=== PATIENT | male | born 1985 | race Hispanic/Latino ===

== ENCOUNTER 2018-01-06 06:45 | Observation (INO) | payer OTHER ==
[2018-01-05 10:40] LABS: BASOPHILS % 0.3 % (0.0-1.0); EOSINOPHILS # (AUTO) 0.1 (0.0-0.4); EOSINOPHILS % 1.3 % (0.0-6.0); HEMATOCRIT 43.3 % (38.2-49.6); HEMOGLOBIN 14.8 g/dL (14.0-18.0); LYMPHOCYTES # (AUTO) 2.7 (1.0-3.2); LYMPHOCYTES % 44.8 % (18.0-39.1); MEAN CORPUSCULAR HEMOGLOBIN 29.4 pg (28-32); MEAN CORPUSCULAR HGB CONC 34.2 g/dL (31-35); MEAN CORPUSCULAR VOLUME 85.9 fL (81-99); MONOCYTES # (AUTO) 0.6 (0.2-0.8); MONOCYTES % 10.3 % (4.4-11.3); NEUTROPHILS # (AUTO) 2.6 (2.1-6.9); NEUTROPHILS % 42.6 % (38.7-80.0); PLATELET COUNT 218 x10e3/uL (140-360); RED BLOOD COUNT 5.04 x10e6/uL (4.3-5.7); RED CELL DISTRIBUTION WIDTH 12.1 % (11.7-14.4)
--- NOTE | 2018-01-05 11:16 | Diagnostic Imaging Report ---
EXAMINATION: PA and lateral views of the chest. COMPARISON: None CLINICAL HISTORY: Preop for back surgery DISCUSSION: Lungs are well-inflated. No focal consolidation, pleural effusion, or pneumothorax. Cardiomediastinal contour and pulmonary vasculature are within normal limits. No acute osseous abnormality. IMPRESSION: No acute cardiopulmonary abnormalities. Signed by: Dr. Dwain Domingo M.D. on 01/05/2018 11:13 AM
[2018-01-05 11:23] LABS: INR 1.02; PROTHROMBIN TIME 14.3 seconds (11.9-14.5)
[2018-01-05 11:24] LABS: PARTIAL THROMBOPLASTIN TIME 32.6 seconds (23.8-35.5)
[2018-01-05 11:29] LABS: ANION GAP 14.9 mmol/L (8-16); BLOOD UREA NITROGEN 15 mg/dL (7-26); BUN/CREATININE RATIO 17 (6-25); CALCIUM 9.9 mg/dL (8.4-10.2); CARBON DIOXIDE 26 mmol/L (22-29); CHLORIDE 103 mmol/L (98-107); CREATININE, SERUM 0.89 mg/dL (0.72-1.25); EST GLOMERULAR FILTRATION RATE > 60 ML/MIN (60-); GLUCOSE 88 mg/dL (74-118); POTASSIUM 3.9 mmol/L (3.5-5.1); SODIUM 140 mmol/L (136-145)
[~2018-01-06] VITALS: Ht 172.7 cm; Wt 99.6 kg
[~2018-01-06 06:45] MED LIST: BACITRACIN 50,000 UNIT VIAL ONE; BUPIVACAINE 0.5%/EPI 30 ML SDV INJ ONE; GELATIN SPONGE 12-7MM ONE; THROMBIN-JMI W/DIL SPRAY PUMP ACTUATOR 20000 UNIT KIT ONE
[2018-01-06] MEDS ORDERED: ACETAMINOPHEN 1000 MG/100 ML 100 ML IV ONE (07:10)
[2018-01-06] MEDS ORDERED: LIDOCAINE HCL (LTA) 4 ML SOLN ONE (07:10)
[2018-01-06] MEDS ORDERED: VANCOMYCIN 1GM/NS 250 ML 250 ML ONE (07:16)
[2018-01-06] MEDS: LACTATED RINGER'S 1,000 ML IV SCH ×2 (09:40→17:11)
[2018-01-06] MEDS ORDERED: ACETAMINOPHEN 325 MG TAB PO PRN (09:45)
[2018-01-06] MEDS ORDERED: HYDROMORPHONE 2MG/ML 2 MG/ML ML IV PRN (09:45)
[2018-01-06] MEDS ORDERED: ONDANSETRON HCL INJ 2 MG/ML VIAL IV PRN (09:45)
[2018-01-06] MEDS ORDERED: PROMETHAZINE HCL (IM) 25 MG/ML VIAL IM PRN (09:45)
[2018-01-06] MEDS ORDERED: MAGNESIUM/ALUMINUM/SIMETHICONE 30 ML UDC PO PRN (09:45)
[2018-01-06] MEDS ORDERED: CEPACOL SORE THROAT LOZENGES PO PRN (09:45)
[2018-01-06] MEDS ORDERED: MORPHINE SULFATE 5 MG/ML VIAL IM PRN (09:45)
[2018-01-06] MEDS ORDERED: HYDROMORPHONE 2MG/ML 2 MG/ML ML ONE (10:09)
--- NOTE | 2018-01-06 10:40 | Operative Report ---
DATE OF PROCEDURE: January 06, 2018 PREOPERATIVE DIAGNOSIS: Left L5-S1 disk herniation with radiculopathy, M51.17. POSTOPERATIVE DIAGNOSIS: Left L5-S1 disk herniation with radiculopathy, M51.17. PROCEDURE: Left L5-S1 laminotomy, medial facetectomy and microsurgical diskectomy, [id number]. ANESTHESIA: General. INDICATIONS: Patient is a 32-year-old man who presents with a severe left S1 radiculopathy due to a left L5-S1 disk herniation with superior migration of the extruded disk fragment. The patient was taken to the operating room for microsurgical diskectomy. PROCEDURE: After the induction of general anesthesia, the patient was placed on the operating table in prone position over a Robb frame. Lumbar region was prepped and draped in sterile fashion. A preoperative x-ray was obtained. A small midline incision was created. Lumbar fascia was opened to the left of the midline, and a subperiosteal dissection was carried out to expose the left-sided L5 and S1 laminae and medial aspect of the facet joint. A 2nd x-ray confirmed correct localization. The operating microscope was brought in. A high-speed drill equipped with a leobardo bur was used to drill the inferior aspect of the lamina of L5 and the superior rim of the lamina of S1 and the medial rim of the L5-S1 facet joint. The ligamentum flavum was resected. The dural sac and the S1 nerve root were exposed. The herniated disk material immediately came into view, markedly compressing and elevating the shoulder of the S1 nerve root. The S1 nerve root was first dissected off of the disk and mobilized and slightly retracted medially. The large extruded disk material was delivered out with a micro-ball probe and then grasped with a micro-pituitary rongeur and removed as a very large fragment of disk. The opening into the annulus of the disk was then enlarged with a #11 blade, and the subligamentous portion of the disk was retrieved and removed. The loose contents of the L5-S1 disk were then conservatively evacuated with curettes and pituitary rongeurs. Meticulous hemostasis was secured. Retractor was removed. The platysma was closed with 3-0 Vicryl sutures. The skin was closed with 4-0 Monocryl sutures in a subcuticular fashion. Steri-Strips and dressing were applied. The patient was awakened, extubated and taken to the postanesthesia care unit in stable condition. No intraoperative complications were encountered. Estimated blood loss was 10 mL. Job#: [id number]
[2018-01-06 11:29] VITALS: BP 147/80
[2018-01-06] MEDS: OXYCODONE/ACETAMINOPHEN 5-325 1 EACH TABLET PO PRN ×2 (11:30→23:05)
[2018-01-06] MEDS: CARISOPRODOL 350 MG TAB PO PRN ×2 (11:30→23:06)
[2018-01-06 16:57] VITALS: BP 120/71
[2018-01-06] MEDS: VANCOMYCIN 1GM/NS 250 ML 250 ML IV SCH (17:02)
[2018-01-06] MEDS ORDERED: PROPOFOL IV EMULSION 10 MG/ML 20 ML VIAL ONE (17:24)
[2018-01-06] MEDS ORDERED: NEOSTIGMINE 5 MG/5ML SYR ONE (17:24)
[2018-01-06] MEDS ORDERED: ONDANSETRON HCL INJ 2 MG/ML VIAL ONE (17:24)
[2018-01-06] MEDS ORDERED: LIDOCAINE HCL 2% LOCAL INJ 5 ML SDV VIAL INJ ONE (17:24)
[2018-01-06] MEDS ORDERED: SEVOFLURANE INHAL SOLN 250 ML PEN BTL ONE (17:24)
[2018-01-06] MEDS ORDERED: ROCURONIUM BROMIDE 10 MG/ML 5ML VIAL ONE (17:24)
[2018-01-06] MEDS ORDERED: DEXAMETHASONE SOD PHOS INJ 4 MG/ML VIAL ONE (17:24)
[2018-01-06] MEDS ORDERED: GLYCOPYRROLATE INJ 1MG/ 5 ML SYR ONE (17:24)
[2018-01-06] MEDS ORDERED: FENTANYL CITRATE/PF 100MCG/2 ML INJ ONE (19:04)
[2018-01-06] MEDS ORDERED: MIDAZOLAM HCL 2 MG/2 ML VIAL ONE (19:04)
[2018-01-06 20:00] VITALS: BP 115/61
[2018-01-06] MEDS ORDERED: ZOLPIDEM TARTRATE 5 MG TAB PO PRN (21:00)
[2018-01-07] VITALS: BP 109/65
[2018-01-07 04:00] VITALS: BP 115/61
[2018-01-07] MEDS: VANCOMYCIN 1GM/NS 250 ML 250 ML IV SCH (07:15)
[2018-01-07] MEDS ORDERED: NORCO 7.5-3251 EACH PO (08:04)
[2018-01-07 08:45] VITALS: BP 123/78
[2018-01-07 08:58] VITALS: BP 123/78
== END 2018-01-07 09:51 | disposition home or self-care (01) ==
LOC: OR 06:45 → PACU V 09:41 → IMCU 11:10
PROVIDERS: ADMIT Neurological Surgery; ATTEND Neurological Surgery
DX: M51.17 Intervertebral disc disorders with radiculopathy, lumbosacral region (principal); Z88.0 Allergy status to penicillin; Z91.013 Allergy to seafood; F41.9 Anxiety disorder, unspecified; Z01.810 Encounter for preprocedural cardiovascular examination; Z01.812 Encounter for preprocedural laboratory examination; Z01.811 Encounter for preprocedural respiratory examination
CPT/HCPCS: 36415; 63047; 71046; 72020; 80048; 85025; 85610; 85730; 86850; 86900; 88304; 93005; G0378 ×2; J0131; J1100; J1170; J2001; J2250; J2270; J2405; J2704; J3370 ×2; J3490; J7120

== ENCOUNTER 2018-01-20 13:55 | Outpatient (RCR) | payer OTHER ==
[~2018-01-20 13:55] MED LIST changes: -BACITRACIN 50,000 UNIT VIAL ONE; -BUPIVACAINE 0.5%/EPI 30 ML SDV INJ ONE; -GELATIN SPONGE 12-7MM ONE; +NORCO 7.5-3251 EACH PO; -THROMBIN-JMI W/DIL SPRAY PUMP ACTUATOR 20000 UNIT KIT ONE
== END 2018-01-21 ==
LOC: PT 13:55
PROVIDERS: ATTEND Neurological Surgery
DX: M51.17 Intervertebral disc disorders with radiculopathy, lumbosacral region (principal); M62.81 Muscle weakness (generalized); M53.87 Other specified dorsopathies, lumbosacral region

== ENCOUNTER 2018-02-17 15:00 | Outpatient (RCR) | payer OTHER | END 2018-02-21 | LOC: PT 15:00 | PROVIDERS: ATTEND Neurological Surgery | DX: M51.17 Intervertebral disc disorders with radiculopathy, lumbosacral region (principal); M62.81 Muscle weakness (generalized); M53.87 Other specified dorsopathies, lumbosacral region ==

== ENCOUNTER → 2024-11-10 | Day surgery (SDC) | payer OTHER ==
[2024-11-03 11:48] LABS: BASOPHILS % 0.2 % (0.0-1.0); EOSINOPHILS % 3.0 % (0.0-6.0); LYMPHOCYTES % 42.8 % (18.0-39.1); MONOCYTES % 9.3 % (4.4-11.3); NEUTROPHILS % 44.2 % (38.7-80.0); RED CELL DISTRIBUTION WIDTH 11.9 % (11.7-14.4)
[2024-11-03 12:12] LABS: EST GLOMERULAR FILTRATION RATE 108.0 ML/MIN (>=60)
[~2024-11-10] MED LIST changes: +ACETAMINOPHEN 1000 MG/100 ML 100 ML IV ONE; +ALBUTEROL/IPRATROPIUM 3 ML NEB ONE; +CALCIUM ACETAT667 MG PO; +FENTANYL CITRATE/PF 100MCG/2 ML INJ ONE; +LIDOCAINE HCL 2% LOCAL INJ 5 ML SDV VIAL INJ ONE; +MIDAZOLAM HCL 2 MG/2 ML VIAL ONE; +PROPOFOL IV EMULSION 10 MG/ML 20 ML VIAL ONE; +ROCURONIUM BROMIDE 1 ML IV ONE; +SUCCINYLCHOLINE CHLORIDE 20 MG/ML 10ML VIAL ONE; +SUGAMMADEX SODIUM 200 MG/2 ML VIAL IV ONE; +VITAMIN D3 COM1 EACH
[2024-11-10] MEDS: LACTATED RINGER'S 1,000 ML ONE (13:32)
[2024-11-10 17:25] VITALS: BP 118/72; PULSE 90; RESP 15; TEMP 97.3; O2SAT 94
== END | disposition home or self-care (01) ==
LOC: OR 09:02
PROVIDERS: ATTEND Surgery
DX: K40.90 Unilateral inguinal hernia, without obstruction or gangrene, not specified as recurrent (principal); Z88.0 Allergy status to penicillin; Z91.013 Allergy to seafood; Z01.812 Encounter for preprocedural laboratory examination
CPT/HCPCS: 36415; 49525; 71045; 80048; 82607; 85025; C1781; J0131; J0330; J2003; J2250; J2704; J3010; J7121

== ENCOUNTER → 2024-12-01 | Day surgery (SDC) | payer OTHER ==
[2024-11-24 11:38] LABS: BASOPHILS % 0.4 % (0.0-1.0); EOSINOPHILS % 2.7 % (0.0-6.0); LYMPHOCYTES % 38.5 % (18.0-39.1); MONOCYTES % 8.5 % (4.4-11.3); NEUTROPHILS % 49.3 % (38.7-80.0); RED CELL DISTRIBUTION WIDTH 11.9 % (11.7-14.4)
[2024-11-24 12:17] LABS: EST GLOMERULAR FILTRATION RATE 114.0 ML/MIN (>=60)
[~2024-12-01] MED LIST changes: -ALBUTEROL/IPRATROPIUM 3 ML NEB ONE; +CALCIUM PO; +GLYCOPYRROLATE INJ 0.2 MG/ML VIAL ONE; +LACTATED RINGER'S 1,000 ML ONE; +LIDOCAINE HCL (LTA) 4 ML SOLN ONE; +ONDANSETRON HCL INJ 2MG/ML 2ML 2 MG/ML VIAL ONE; +ROCURONIUM BROMIDE 0 ML IV ONE; -ROCURONIUM BROMIDE 1 ML IV ONE; -SUCCINYLCHOLINE CHLORIDE 20 MG/ML 10ML VIAL ONE; -SUGAMMADEX SODIUM 200 MG/2 ML VIAL IV ONE; +VITAMIN D3 PO
[2024-12-01 10:25] VITALS: TEMP 98
[2024-12-01 11:15] VITALS: BP 116/80; PULSE 69; RESP 14; O2SAT 100
== END | disposition home or self-care (01) ==
LOC: OR 06:31
PROVIDERS: ATTEND Surgery
DX: K40.90 Unilateral inguinal hernia, without obstruction or gangrene, not specified as recurrent (principal); D17.6 Benign lipomatous neoplasm of spermatic cord; Z68.33 Body mass index [BMI] 33.0-33.9, adult; Z88.0 Allergy status to penicillin; Z01.812 Encounter for preprocedural laboratory examination
CPT/HCPCS: 36415; 49505; 71046; 80048; 85025; C1781; J0131; J2003; J2250; J2405; J2704; J3010; J7121